=== PATIENT | male | born 1995 | race Caucasian/White ===

== ENCOUNTER 2017-02-27 13:23 | Inpatient (IN) | payer BC ==
[2017-02-27] VITALS (500 sets, daily range): BP systolic 99–116; BP diastolic 58–75; PULSE 64–81; TEMP 97.5–98.5; O2SAT 76–100
[~2017-02-27] VITALS: Ht 180.3 cm; Wt 63.4 kg
[2017-02-27 14:28] LABS: BASO # 0.1 (0.0-0.2); BASO % 1.1 % (0.0-2.0); EOS # 0.1 (0.0-0.7); EOS % 1.3 % (0-4.0); GRAN # 7.2 (1.4-6.5); GRAN % 71.5 % (42.2-75.2); HEMATOCRIT 47.4 % (42.0-52.0); HEMOGLOBIN 16.4 g/dl (13.5-18.0); LYMPH # 2.2 (1.2-3.4); LYMPH % 21.7 % (20.0-51.0); MEAN CELL VOLUME 87 fl (80.0-100.0); MEAN CORPUSCULAR HEMOGLOBIN 30 pg (27.0-31.0); MEAN CORPUSCULAR HGB CONC 35 g/dl (33.0-37.0); MEAN PLATELET VOLUME 10.6 fl (7.4-10.4); MONO # 0.4 (0.1-0.6); MONO % 3.6 % (1.7-9.3); PLATELET COUNT 339 K/mm3 (130-400); RED BLOOD COUNT 5.48 M/mm3 (4.20-5.60); REDCELL DISTRIBUTION WIDTH-CV 12.3 % (11.5-14.5)
[2017-02-27 14:29] LABS: VENOUS BLOOD GAS BE -14.3 (-4-4); VENOUS BLOOD GAS SAO2 58.6 % (60-80); VENOUS BLOOD GAS SITE VENIPUNCTURE
[2017-02-27 14:40] LABS: ADJUSTED CALCIUM 9.5 mg/dL (8.4-10.2); ALANINE AMINOTRANSFERASE 25 U/L (21-72); ALBUMIN 4.8 gm/dL (3.5-5.0); ALKALINE PHOSPHATASE 135 U/L (50-136); ANION GAP 27 mmol/L (7-16); BLOOD UREA NITROGEN 19 mg/dL (9-20); CALCIUM 10.1 mg/dL (8.4-10.2); CHLORIDE 91 mmol/L (98-107); CREATININE, serum 1.07 mg/dL (0.66-1.25); LIPASE 46 U/L (23-300); POTASSIUM 5.2 mmol/L (3.4-5.0); SODIUM 129 mmol/L (137-145); TOTAL PROTEIN 7.9 gm/dL (6.4-8.2)
[2017-02-27 14:40] LABS: PH 5 (5-8); SQUAMOUS EPITHELIAL 0-2 /hpf; URINE APPEARANCE Clear; URINE BACTERIA None Seen /hpf; URINE BILIRUBIN Negative (NEGATIVE); URINE BLOOD Negative (NEGATIVE); URINE COLOR Straw; URINE GLUCOSE 3+ (NEGATIVE); URINE KETONE 2+ (NEGATIVE); URINE RBC None Seen /hpf; URINE UROBILINOGEN Negative (NEGATIVE); URINE WBC 0-2 /hpf
[2017-02-27 14:47] LABS: C-REACTIVE PROTEIN < 0.5 mg/dL (0.0-0.9); CARBON DIOXIDE 11 mmol/L (22-30); GLUCOSE 562 mg/dL (74-106)
[2017-02-27] MEDS ORDERED: NOVOLOG 100U100 U/M1 SQ (15:17)
[2017-02-27] MEDS ORDERED: TRESIBA FL100 UNIT/1 SQ (15:20)
[2017-02-27] MEDS ORDERED: LEVOXYL0.1 MG (16:01)
[2017-02-27 16:49] LABS: MAGNESIUM 1.9 mg/dL (1.6-2.3); PHOSPHOROUS 4.6 mg/dL (2.5-4.5)
[2017-02-27 18:25] LABS: CALCIUM 7.9 mg/dL (8.4-10.2); CREATININE, serum 0.95 mg/dL (0.66-1.25); POTASSIUM 4.5 mmol/L (3.4-5.0)
[2017-02-27 20:13] LABS: CALCIUM 7.6 mg/dL (8.4-10.2); CREATININE, serum 1.03 mg/dL (0.66-1.25); POTASSIUM 4.5 mmol/L (3.4-5.0)
[2017-02-27 22:43] LABS: CALCIUM 7.4 mg/dL (8.4-10.2); CREATININE, serum 0.88 mg/dL (0.66-1.25); POTASSIUM 4.1 mmol/L (3.4-5.0)
[2017-02-28] VITALS (1276 sets, daily range): BP systolic 94–117; BP diastolic 57–89; PULSE 62–79; TEMP 97–98.5; O2SAT 46–100
[2017-02-28 00:38] LABS: CALCIUM 7.4 mg/dL (8.4-10.2); CREATININE, serum 0.81 mg/dL (0.66-1.25); POTASSIUM 4.1 mmol/L (3.4-5.0)
[2017-02-28 02:27] LABS: CALCIUM 7.3 mg/dL (8.4-10.2); CREATININE, serum 0.74 mg/dL (0.66-1.25); POTASSIUM 4.1 mmol/L (3.4-5.0)
[2017-02-28 04:37] LABS: CALCIUM 7.6 mg/dL (8.4-10.2); CREATININE, serum 0.69 mg/dL (0.66-1.25); POTASSIUM 3.8 mmol/L (3.4-5.0)
[2017-02-28 12:42] LABS: CALCIUM 7.6 mg/dL (8.4-10.2); CREATININE, serum 0.79 mg/dL (0.66-1.25); POTASSIUM 3.9 mmol/L (3.4-5.0)
[2017-02-28 17:02] LABS: CALCIUM 7.6 mg/dL (8.4-10.2); CREATININE, serum 0.83 mg/dL (0.66-1.25); POTASSIUM 3.7 mmol/L (3.4-5.0)
[2017-02-28 20:36] LABS: CALCIUM 8.4 mg/dL (8.4-10.2); CREATININE, serum 0.85 mg/dL (0.66-1.25)
[2017-03-01] VITALS (414 sets, daily range): BP systolic 106–130; BP diastolic 63–81; PULSE 60–84; TEMP 97.4–98.6; O2SAT 65–100
[2017-03-01 00:46] LABS: CALCIUM 7.7 mg/dL (8.4-10.2); CREATININE, serum 0.78 mg/dL (0.66-1.25); POTASSIUM 3.8 mmol/L (3.4-5.0)
[2017-03-01 04:30] LABS: CALCIUM 8.2 mg/dL (8.4-10.2); CREATININE, serum 0.68 mg/dL (0.66-1.25); POTASSIUM 3.5 mmol/L (3.4-5.0)
[2017-03-01 08:37] LABS: CALCIUM 8.5 mg/dL (8.4-10.2); CREATININE, serum 0.71 mg/dL (0.66-1.25); POTASSIUM 3.6 mmol/L (3.4-5.0)
[2017-03-02 00:47] VITALS: BP 127/71; PULSE 83; TEMP 97.6
[2017-03-02 05:47] VITALS: BP 100/63; PULSE 65; TEMP 98.3
[2017-03-02 07:12] LABS: CALCIUM 9.3 mg/dL (8.4-10.2); CREATININE, serum 0.65 mg/dL (0.66-1.25); MAGNESIUM 1.6 mg/dL (1.6-2.3); POTASSIUM 4.2 mmol/L (3.4-5.0)
[2017-03-02 07:42] VITALS: BP 115/68; PULSE 79; TEMP 98.4
[2017-03-02] MEDS ORDERED: TRESIBA FL100 UNIT/1 SQ (11:53)
[2017-03-02] MEDS ORDERED: NOVOLOG 100U100 U/M1 SQ (11:53)
[2017-03-02] MEDS ORDERED: GLUCOSE TEST ST1 DEV MC (11:54)
[2017-03-02 12:48] VITALS: BP 126/64; PULSE 70; TEMP 97.9
== END 2017-03-02 12:57 | disposition home or self-care (01) | DRG 639 ==
LOC: COL.ER 13:23 → MEDICAL 15:03 → ICU 15:03 → MEDICAL 03-01 11:45
PROVIDERS: Emergency Medicine; Internal Medicine
DX: E10.10 Type 1 diabetes mellitus with ketoacidosis without coma (principal); F17.210 Nicotine dependence, cigarettes, uncomplicated
CPT/HCPCS: 99222-AI; 99232-AI; 99239; J1815; J2060; J2405; J2550; J7030

== ENCOUNTER 2017-04-21 20:46 | Emergency (ER) | payer OTHER ==
[~2017-04-21] VITALS: Ht 180.3 cm; Wt 71.4 kg
[~2017-04-21 20:46] MED LIST: GLUCOSE TEST ST1 DEV MC; LEVOXYL0.1 MG; NOVOLOG 100U100 U/M1 SQ; TRESIBA FL100 UNIT/1 SQ
[2017-04-21 20:49] VITALS: TEMP 98
[2017-04-21 21:16] LABS: BASO # 0.1 (0.0-0.2); BASO % 0.7 % (0.0-2.0); EOS # 0.2 (0.0-0.7); EOS % 2.7 % (0-4.0); GRAN # 3.5 (1.4-6.5); GRAN % 49.2 % (42.2-75.2); HEMATOCRIT 40.6 % (42.0-52.0); HEMOGLOBIN 13.8 g/dl (13.5-18.0); LYMPH # 2.9 (1.2-3.4); LYMPH % 40.7 % (20.0-51.0); MEAN CELL VOLUME 88 fl (80.0-100.0); MEAN CORPUSCULAR HEMOGLOBIN 30 pg (27.0-31.0); MEAN CORPUSCULAR HGB CONC 34 g/dl (33.0-37.0); MEAN PLATELET VOLUME 10.4 fl (7.4-10.4); MONO # 0.5 (0.1-0.6); MONO % 6.4 % (1.7-9.3); PLATELET COUNT 232 K/mm3 (130-400); RED BLOOD COUNT 4.63 M/mm3 (4.20-5.60); REDCELL DISTRIBUTION WIDTH-CV 12.6 % (11.5-14.5)
[2017-04-21 21:19] LABS: PH 6 (5-8); SQUAMOUS EPITHELIAL None Seen /hpf; URINE APPEARANCE Clear; URINE BACTERIA None Seen /hpf; URINE BILIRUBIN Negative (NEGATIVE); URINE BLOOD Negative (NEGATIVE); URINE COLOR Colorless; URINE GLUCOSE 3+ (NEGATIVE); URINE KETONE Negative (NEGATIVE); URINE RBC 0-2 /hpf; URINE UROBILINOGEN Negative (NEGATIVE); URINE WBC 0-2 /hpf
[2017-04-21 21:33] LABS: ADJUSTED CALCIUM 9.3 mg/dL (8.4-10.2); ALANINE AMINOTRANSFERASE 33 U/L (21-72); ALBUMIN 4.4 gm/dL (3.5-5.0); ALKALINE PHOSPHATASE 140 U/L (50-136); ANION GAP 16 mmol/L (7-16); BILIRUBIN,TOTAL 0.6 mg/dL (0.0-1.0); BLOOD UREA NITROGEN 15 mg/dL (9-20); CALCIUM 9.6 mg/dL (8.4-10.2); CARBON DIOXIDE 22 mmol/L (22-30); CHLORIDE 97 mmol/L (98-107); CREATININE, serum 0.91 mg/dL (0.66-1.25); POTASSIUM 3.9 mmol/L (3.4-5.0); SODIUM 135 mmol/L (137-145); TOTAL PROTEIN 7.1 gm/dL (6.4-8.2)
[2017-04-21 21:47] LABS: GLUCOSE 615 mg/dL (74-106)
[2017-04-21 23:18] VITALS: BP 110/79; PULSE 84
== END 2017-04-21 23:19 | disposition home or self-care (01) ==
LOC: COL.ER 20:46
PROVIDERS: Family Medicine
DX: E10.65 Type 1 diabetes mellitus with hyperglycemia (principal); E86.0 Dehydration; Z79.4 Long term (current) use of insulin; Z86.39 Personal history of other endocrine, nutritional and metabolic disease
CPT/HCPCS: J1815; J7030